=== PATIENT | male | born 1935 | race Caucasian/White ===

== ENCOUNTER → 2019-12-08 | Outpatient (CLI) | payer OTHER, BC ==
[~2019-12-08] MED LIST: ADULT LOW DOSE81 MG PO; CALCIUM + D3 E1 EACH; FLORINEF ACETA0.1 MG PO; HUMALOG100 UNIT/1; MESTINON60 MG PO; MIDODRINE HCL 55 M1 PO; MULTI-VITAMIN1 EAC5 PO; OMEGA-3100 MG PO; SYNTHROID100 MCG PO; VYTORIN 10-401 EACH PO
== END ==
LOC: HYPER 11:25
DX: E10.622 Type 1 diabetes mellitus with other skin ulcer (principal); L89.154 Pressure ulcer of sacral region, stage 4; L98.491 Non-pressure chronic ulcer of skin of other sites limited to breakdown of skin; E10.22 Type 1 diabetes mellitus with diabetic chronic kidney disease; I13.0 Hypertensive heart and chronic kidney disease with heart failure and stage 1 through stage 4 chronic kidney disease, or unspecified chronic kidney disease; N18.3 Chronic kidney disease, stage 3 (moderate); I50.9 Heart failure, unspecified; E10.42 Type 1 diabetes mellitus with diabetic polyneuropathy; E10.39 Type 1 diabetes mellitus with other diabetic ophthalmic complication; H40.9 Unspecified glaucoma; E10.51 Type 1 diabetes mellitus with diabetic peripheral angiopathy without gangrene; E44.0 Moderate protein-calorie malnutrition; E03.9 Hypothyroidism, unspecified; E78.5 Hyperlipidemia, unspecified; I25.10 Atherosclerotic heart disease of native coronary artery without angina pectoris; I48.0 Paroxysmal atrial fibrillation; I25.2 Old myocardial infarction; I89.0 Lymphedema, not elsewhere classified; M19.90 Unspecified osteoarthritis, unspecified site; M81.0 Age-related osteoporosis without current pathological fracture; Z87.891 Personal history of nicotine dependence; Z95.1 Presence of aortocoronary bypass graft; Z85.46 Personal history of malignant neoplasm of prostate; Z86.73 Personal history of transient ischemic attack (TIA), and cerebral infarction without residual deficits; Z95.828 Presence of other vascular implants and grafts; Z79.4 Long term (current) use of insulin; Z79.01 Long term (current) use of anticoagulants; Z95.818 Presence of other cardiac implants and grafts; Z98.49 Cataract extraction status, unspecified eye

== ENCOUNTER → 2019-12-22 | Outpatient (CLI) | payer OTHER, BC | LOC: HYPER 10:33 | DX: E10.622 Type 1 diabetes mellitus with other skin ulcer (principal); L89.154 Pressure ulcer of sacral region, stage 4; L98.496 Non-pressure chronic ulcer of skin of other sites with bone involvement without evidence of necrosis; E10.22 Type 1 diabetes mellitus with diabetic chronic kidney disease; I13.0 Hypertensive heart and chronic kidney disease with heart failure and stage 1 through stage 4 chronic kidney disease, or unspecified chronic kidney disease; N18.3 Chronic kidney disease, stage 3 (moderate); I50.9 Heart failure, unspecified; E10.42 Type 1 diabetes mellitus with diabetic polyneuropathy; E10.51 Type 1 diabetes mellitus with diabetic peripheral angiopathy without gangrene; E10.39 Type 1 diabetes mellitus with other diabetic ophthalmic complication; H40.9 Unspecified glaucoma; E46 Unspecified protein-calorie malnutrition; E03.9 Hypothyroidism, unspecified; E78.5 Hyperlipidemia, unspecified; E44.0 Moderate protein-calorie malnutrition; R54 Age-related physical debility; I48.0 Paroxysmal atrial fibrillation; I25.10 Atherosclerotic heart disease of native coronary artery without angina pectoris; I25.2 Old myocardial infarction; I89.0 Lymphedema, not elsewhere classified; M19.90 Unspecified osteoarthritis, unspecified site; M81.0 Age-related osteoporosis without current pathological fracture; Z86.73 Personal history of transient ischemic attack (TIA), and cerebral infarction without residual deficits; Z85.46 Personal history of malignant neoplasm of prostate; Z79.4 Long term (current) use of insulin; Z79.01 Long term (current) use of anticoagulants; Z87.891 Personal history of nicotine dependence; Z95.1 Presence of aortocoronary bypass graft; Z98.41 Cataract extraction status, right eye; Z98.42 Cataract extraction status, left eye; Z79.82 Long term (current) use of aspirin ==

== ENCOUNTER → 2020-01-04 | Outpatient (CLI) | payer OTHER, BC | LOC: HYPER 10:46 | PROVIDERS: ATTEND Emergency Medicine | DX: E10.622 Type 1 diabetes mellitus with other skin ulcer (principal); L89.154 Pressure ulcer of sacral region, stage 4; L98.496 Non-pressure chronic ulcer of skin of other sites with bone involvement without evidence of necrosis; E10.39 Type 1 diabetes mellitus with other diabetic ophthalmic complication; H40.9 Unspecified glaucoma; E10.22 Type 1 diabetes mellitus with diabetic chronic kidney disease; I13.0 Hypertensive heart and chronic kidney disease with heart failure and stage 1 through stage 4 chronic kidney disease, or unspecified chronic kidney disease; N18.3 Chronic kidney disease, stage 3 (moderate); I50.9 Heart failure, unspecified; E10.40 Type 1 diabetes mellitus with diabetic neuropathy, unspecified; E10.42 Type 1 diabetes mellitus with diabetic polyneuropathy; E10.51 Type 1 diabetes mellitus with diabetic peripheral angiopathy without gangrene; E44.0 Moderate protein-calorie malnutrition; E78.5 Hyperlipidemia, unspecified; E03.9 Hypothyroidism, unspecified; R54 Age-related physical debility; I89.0 Lymphedema, not elsewhere classified; I48.0 Paroxysmal atrial fibrillation; I25.10 Atherosclerotic heart disease of native coronary artery without angina pectoris; I25.2 Old myocardial infarction; M19.90 Unspecified osteoarthritis, unspecified site; M81.0 Age-related osteoporosis without current pathological fracture; Z86.73 Personal history of transient ischemic attack (TIA), and cerebral infarction without residual deficits; Z87.891 Personal history of nicotine dependence; Z95.818 Presence of other cardiac implants and grafts; Z79.4 Long term (current) use of insulin; Z79.01 Long term (current) use of anticoagulants; Z95.1 Presence of aortocoronary bypass graft; Z85.46 Personal history of malignant neoplasm of prostate; Z98.41 Cataract extraction status, right eye; Z98.42 Cataract extraction status, left eye ==

== ENCOUNTER → 2020-01-18 | Outpatient (CLI) | payer OTHER, BC | LOC: HYPER 07:17 | PROVIDERS: ATTEND Emergency Medicine | DX: E10.622 Type 1 diabetes mellitus with other skin ulcer (principal); L89.154 Pressure ulcer of sacral region, stage 4; L98.496 Non-pressure chronic ulcer of skin of other sites with bone involvement without evidence of necrosis; E10.42 Type 1 diabetes mellitus with diabetic polyneuropathy; E10.51 Type 1 diabetes mellitus with diabetic peripheral angiopathy without gangrene; I89.0 Lymphedema, not elsewhere classified; E10.36 Type 1 diabetes mellitus with diabetic cataract; E10.22 Type 1 diabetes mellitus with diabetic chronic kidney disease; I13.0 Hypertensive heart and chronic kidney disease with heart failure and stage 1 through stage 4 chronic kidney disease, or unspecified chronic kidney disease; I50.9 Heart failure, unspecified; N18.3 Chronic kidney disease, stage 3 (moderate); R54 Age-related physical debility; E44.0 Moderate protein-calorie malnutrition; E03.9 Hypothyroidism, unspecified; M19.90 Unspecified osteoarthritis, unspecified site; E10.39 Type 1 diabetes mellitus with other diabetic ophthalmic complication; H42 Glaucoma in diseases classified elsewhere; E78.5 Hyperlipidemia, unspecified; I48.91 Unspecified atrial fibrillation; I25.2 Old myocardial infarction; M81.0 Age-related osteoporosis without current pathological fracture; Z95.1 Presence of aortocoronary bypass graft; Z85.46 Personal history of malignant neoplasm of prostate; Z86.73 Personal history of transient ischemic attack (TIA), and cerebral infarction without residual deficits; Z68.1 Body mass index [BMI] 19.9 or less, adult; Z79.01 Long term (current) use of anticoagulants; Z79.82 Long term (current) use of aspirin; Z98.41 Cataract extraction status, right eye; Z98.42 Cataract extraction status, left eye; Z87.891 Personal history of nicotine dependence ==

== ENCOUNTER → 2020-01-25 | Outpatient (CLI) | payer OTHER, BC | LOC: HYPER 08:51 | PROVIDERS: ATTEND Emergency Medicine Emergency Medical Services | DX: E10.622 Type 1 diabetes mellitus with other skin ulcer (principal); L89.154 Pressure ulcer of sacral region, stage 4; L98.496 Non-pressure chronic ulcer of skin of other sites with bone involvement without evidence of necrosis; E10.22 Type 1 diabetes mellitus with diabetic chronic kidney disease; I13.0 Hypertensive heart and chronic kidney disease with heart failure and stage 1 through stage 4 chronic kidney disease, or unspecified chronic kidney disease; N18.3 Chronic kidney disease, stage 3 (moderate); I50.9 Heart failure, unspecified; E10.36 Type 1 diabetes mellitus with diabetic cataract; E10.39 Type 1 diabetes mellitus with other diabetic ophthalmic complication; H40.9 Unspecified glaucoma; E10.42 Type 1 diabetes mellitus with diabetic polyneuropathy; E10.51 Type 1 diabetes mellitus with diabetic peripheral angiopathy without gangrene; E44.0 Moderate protein-calorie malnutrition; E78.5 Hyperlipidemia, unspecified; E03.9 Hypothyroidism, unspecified; R54 Age-related physical debility; I89.0 Lymphedema, not elsewhere classified; I25.10 Atherosclerotic heart disease of native coronary artery without angina pectoris; I48.0 Paroxysmal atrial fibrillation; I25.2 Old myocardial infarction; M19.90 Unspecified osteoarthritis, unspecified site; M81.0 Age-related osteoporosis without current pathological fracture; Z85.46 Personal history of malignant neoplasm of prostate; Z79.4 Long term (current) use of insulin; Z79.01 Long term (current) use of anticoagulants; Z87.891 Personal history of nicotine dependence; Z95.818 Presence of other cardiac implants and grafts; Z95.1 Presence of aortocoronary bypass graft; Z98.42 Cataract extraction status, left eye; Z86.73 Personal history of transient ischemic attack (TIA), and cerebral infarction without residual deficits; Z95.828 Presence of other vascular implants and grafts ==

== ENCOUNTER → 2020-02-08 | Outpatient (CLI) | payer OTHER, BC | LOC: HYPER 10:39 | PROVIDERS: ATTEND Emergency Medicine | DX: E10.622 Type 1 diabetes mellitus with other skin ulcer (principal); L89.154 Pressure ulcer of sacral region, stage 4; L98.496 Non-pressure chronic ulcer of skin of other sites with bone involvement without evidence of necrosis; E10.22 Type 1 diabetes mellitus with diabetic chronic kidney disease; I13.0 Hypertensive heart and chronic kidney disease with heart failure and stage 1 through stage 4 chronic kidney disease, or unspecified chronic kidney disease; N18.3 Chronic kidney disease, stage 3 (moderate); I50.9 Heart failure, unspecified; E10.36 Type 1 diabetes mellitus with diabetic cataract; E10.39 Type 1 diabetes mellitus with other diabetic ophthalmic complication; H42 Glaucoma in diseases classified elsewhere; E10.42 Type 1 diabetes mellitus with diabetic polyneuropathy; E10.51 Type 1 diabetes mellitus with diabetic peripheral angiopathy without gangrene; E44.0 Moderate protein-calorie malnutrition; E78.5 Hyperlipidemia, unspecified; E03.9 Hypothyroidism, unspecified; R54 Age-related physical debility; I89.0 Lymphedema, not elsewhere classified; I25.10 Atherosclerotic heart disease of native coronary artery without angina pectoris; I25.2 Old myocardial infarction; M19.90 Unspecified osteoarthritis, unspecified site; M81.0 Age-related osteoporosis without current pathological fracture; Z85.46 Personal history of malignant neoplasm of prostate; Z79.4 Long term (current) use of insulin; Z79.01 Long term (current) use of anticoagulants; Z87.891 Personal history of nicotine dependence; Z85.818 Personal history of malignant neoplasm of other sites of lip, oral cavity, and pharynx; Z95.1 Presence of aortocoronary bypass graft; Z98.42 Cataract extraction status, left eye; Z86.73 Personal history of transient ischemic attack (TIA), and cerebral infarction without residual deficits; Z95.828 Presence of other vascular implants and grafts ==

== ENCOUNTER → 2020-02-22 | Outpatient (CLI) | payer OTHER, BC | LOC: RAD 10:32 → HYPER 10:32 | PROVIDERS: ATTEND Emergency Medicine | DX: E10.622 Type 1 diabetes mellitus with other skin ulcer (principal); L89.154 Pressure ulcer of sacral region, stage 4; L98.496 Non-pressure chronic ulcer of skin of other sites with bone involvement without evidence of necrosis; E10.22 Type 1 diabetes mellitus with diabetic chronic kidney disease; I13.0 Hypertensive heart and chronic kidney disease with heart failure and stage 1 through stage 4 chronic kidney disease, or unspecified chronic kidney disease; I50.9 Heart failure, unspecified; N18.3 Chronic kidney disease, stage 3 (moderate); E10.42 Type 1 diabetes mellitus with diabetic polyneuropathy; E10.51 Type 1 diabetes mellitus with diabetic peripheral angiopathy without gangrene; E10.39 Type 1 diabetes mellitus with other diabetic ophthalmic complication; H40.9 Unspecified glaucoma; E44.0 Moderate protein-calorie malnutrition; E03.9 Hypothyroidism, unspecified; E78.5 Hyperlipidemia, unspecified; R54 Age-related physical debility; I89.0 Lymphedema, not elsewhere classified; I48.0 Paroxysmal atrial fibrillation; I25.10 Atherosclerotic heart disease of native coronary artery without angina pectoris; I25.2 Old myocardial infarction; M19.90 Unspecified osteoarthritis, unspecified site; M81.0 Age-related osteoporosis without current pathological fracture; Z86.73 Personal history of transient ischemic attack (TIA), and cerebral infarction without residual deficits; Z85.46 Personal history of malignant neoplasm of prostate; Z87.891 Personal history of nicotine dependence; Z95.818 Presence of other cardiac implants and grafts; Z95.1 Presence of aortocoronary bypass graft; Z98.41 Cataract extraction status, right eye; Z98.42 Cataract extraction status, left eye; Z79.4 Long term (current) use of insulin; Z79.01 Long term (current) use of anticoagulants ==

== ENCOUNTER → 2020-02-27 | Outpatient (CLI) | payer OTHER, BC | LOC: HYPER 13:30 | PROVIDERS: ATTEND Emergency Medicine | DX: E10.622 Type 1 diabetes mellitus with other skin ulcer (principal); L89.154 Pressure ulcer of sacral region, stage 4; E10.22 Type 1 diabetes mellitus with diabetic chronic kidney disease; N18.3 Chronic kidney disease, stage 3 (moderate); E10.40 Type 1 diabetes mellitus with diabetic neuropathy, unspecified; E44.0 Moderate protein-calorie malnutrition; I48.0 Paroxysmal atrial fibrillation; R54 Age-related physical debility; Z87.891 Personal history of nicotine dependence; Z95.818 Presence of other cardiac implants and grafts; Z79.4 Long term (current) use of insulin; Z79.01 Long term (current) use of anticoagulants; Z95.1 Presence of aortocoronary bypass graft; Z98.41 Cataract extraction status, right eye; Z98.42 Cataract extraction status, left eye ==

== ENCOUNTER → 2020-03-29 | Outpatient (CLI) | payer OTHER, BC | LOC: HYPER 10:40 | PROVIDERS: ATTEND Emergency Medicine | DX: T81.89XA Other complications of procedures, not elsewhere classified, initial encounter (principal); E10.622 Type 1 diabetes mellitus with other skin ulcer; L89.154 Pressure ulcer of sacral region, stage 4; L98.491 Non-pressure chronic ulcer of skin of other sites limited to breakdown of skin; L02.31 Cutaneous abscess of buttock; E10.39 Type 1 diabetes mellitus with other diabetic ophthalmic complication; H40.9 Unspecified glaucoma; E10.40 Type 1 diabetes mellitus with diabetic neuropathy, unspecified; E10.51 Type 1 diabetes mellitus with diabetic peripheral angiopathy without gangrene; E10.22 Type 1 diabetes mellitus with diabetic chronic kidney disease; I13.0 Hypertensive heart and chronic kidney disease with heart failure and stage 1 through stage 4 chronic kidney disease, or unspecified chronic kidney disease; I50.9 Heart failure, unspecified; N18.3 Chronic kidney disease, stage 3 (moderate); E44.0 Moderate protein-calorie malnutrition; E03.9 Hypothyroidism, unspecified; E78.5 Hyperlipidemia, unspecified; I89.0 Lymphedema, not elsewhere classified; I48.0 Paroxysmal atrial fibrillation; R54 Age-related physical debility; I25.10 Atherosclerotic heart disease of native coronary artery without angina pectoris; I48.91 Unspecified atrial fibrillation; I25.2 Old myocardial infarction; M19.90 Unspecified osteoarthritis, unspecified site; M81.0 Age-related osteoporosis without current pathological fracture; Z86.73 Personal history of transient ischemic attack (TIA), and cerebral infarction without residual deficits; Z95.828 Presence of other vascular implants and grafts; Z79.4 Long term (current) use of insulin; Z79.01 Long term (current) use of anticoagulants; Z87.891 Personal history of nicotine dependence; Z95.818 Presence of other cardiac implants and grafts; Z95.1 Presence of aortocoronary bypass graft; Z85.46 Personal history of malignant neoplasm of prostate; Z98.41 Cataract extraction status, right eye; Z98.42 Cataract extraction status, left eye; Y92.238 Other place in hospital as the place of occurrence of the external cause; Y83.8 Other surgical procedures as the cause of abnormal reaction of the patient, or of later complication, without mention of misadventure at the time of the procedure ==

== ENCOUNTER → 2020-04-12 | Outpatient (CLI) | payer OTHER, BC | LOC: HYPER 10:22 | PROVIDERS: ATTEND Emergency Medicine | DX: T81.89XD Other complications of procedures, not elsewhere classified, subsequent encounter (principal); E10.622 Type 1 diabetes mellitus with other skin ulcer; L89.154 Pressure ulcer of sacral region, stage 4; L98.496 Non-pressure chronic ulcer of skin of other sites with bone involvement without evidence of necrosis; L02.31 Cutaneous abscess of buttock; E10.40 Type 1 diabetes mellitus with diabetic neuropathy, unspecified; E10.22 Type 1 diabetes mellitus with diabetic chronic kidney disease; I13.0 Hypertensive heart and chronic kidney disease with heart failure and stage 1 through stage 4 chronic kidney disease, or unspecified chronic kidney disease; I50.9 Heart failure, unspecified; N18.3 Chronic kidney disease, stage 3 (moderate); E10.51 Type 1 diabetes mellitus with diabetic peripheral angiopathy without gangrene; E10.39 Type 1 diabetes mellitus with other diabetic ophthalmic complication; H40.9 Unspecified glaucoma; E03.9 Hypothyroidism, unspecified; E44.0 Moderate protein-calorie malnutrition; E78.5 Hyperlipidemia, unspecified; R54 Age-related physical debility; I48.0 Paroxysmal atrial fibrillation; I89.0 Lymphedema, not elsewhere classified; I25.10 Atherosclerotic heart disease of native coronary artery without angina pectoris; I25.2 Old myocardial infarction; M19.90 Unspecified osteoarthritis, unspecified site; M81.0 Age-related osteoporosis without current pathological fracture; Z79.4 Long term (current) use of insulin; Z79.01 Long term (current) use of anticoagulants; Z85.46 Personal history of malignant neoplasm of prostate; Z87.891 Personal history of nicotine dependence; Z95.818 Presence of other cardiac implants and grafts; Z95.1 Presence of aortocoronary bypass graft; Z98.41 Cataract extraction status, right eye; Z98.42 Cataract extraction status, left eye; Z86.73 Personal history of transient ischemic attack (TIA), and cerebral infarction without residual deficits; Z95.828 Presence of other vascular implants and grafts; Y83.8 Other surgical procedures as the cause of abnormal reaction of the patient, or of later complication, without mention of misadventure at the time of the procedure ==

== ENCOUNTER → 2020-05-01 | Outpatient (CLI) | payer OTHER, BC | LOC: HYPER 09:42 | PROVIDERS: ATTEND Emergency Medicine | DX: T81.89XD Other complications of procedures, not elsewhere classified, subsequent encounter (principal); E10.622 Type 1 diabetes mellitus with other skin ulcer; L89.154 Pressure ulcer of sacral region, stage 4; L98.496 Non-pressure chronic ulcer of skin of other sites with bone involvement without evidence of necrosis; L02.31 Cutaneous abscess of buttock; E10.42 Type 1 diabetes mellitus with diabetic polyneuropathy; E10.51 Type 1 diabetes mellitus with diabetic peripheral angiopathy without gangrene; I89.0 Lymphedema, not elsewhere classified; E10.22 Type 1 diabetes mellitus with diabetic chronic kidney disease; I13.0 Hypertensive heart and chronic kidney disease with heart failure and stage 1 through stage 4 chronic kidney disease, or unspecified chronic kidney disease; N18.30 Chronic kidney disease, stage 3 unspecified; E44.0 Moderate protein-calorie malnutrition; R54 Age-related physical debility; E03.9 Hypothyroidism, unspecified; M19.90 Unspecified osteoarthritis, unspecified site; E10.39 Type 1 diabetes mellitus with other diabetic ophthalmic complication; H42 Glaucoma in diseases classified elsewhere; I25.10 Atherosclerotic heart disease of native coronary artery without angina pectoris; E78.5 Hyperlipidemia, unspecified; I48.91 Unspecified atrial fibrillation; I25.2 Old myocardial infarction; M81.0 Age-related osteoporosis without current pathological fracture; Z86.73 Personal history of transient ischemic attack (TIA), and cerebral infarction without residual deficits; Z85.46 Personal history of malignant neoplasm of prostate; Z87.891 Personal history of nicotine dependence; Z79.01 Long term (current) use of anticoagulants; Z95.1 Presence of aortocoronary bypass graft; Z98.41 Cataract extraction status, right eye; Z98.42 Cataract extraction status, left eye; Y83.8 Other surgical procedures as the cause of abnormal reaction of the patient, or of later complication, without mention of misadventure at the time of the procedure ==

== ENCOUNTER → 2020-05-29 | Outpatient (CLI) | payer OTHER, BC | LOC: HYPER 13:08 | PROVIDERS: ATTEND Emergency Medicine | DX: T81.89XD Other complications of procedures, not elsewhere classified, subsequent encounter (principal); E10.622 Type 1 diabetes mellitus with other skin ulcer; L89.154 Pressure ulcer of sacral region, stage 4; L98.491 Non-pressure chronic ulcer of skin of other sites limited to breakdown of skin; E10.22 Type 1 diabetes mellitus with diabetic chronic kidney disease; I13.0 Hypertensive heart and chronic kidney disease with heart failure and stage 1 through stage 4 chronic kidney disease, or unspecified chronic kidney disease; I50.9 Heart failure, unspecified; N18.30 Chronic kidney disease, stage 3 unspecified; R54 Age-related physical debility; E44.0 Moderate protein-calorie malnutrition; E10.628 Type 1 diabetes mellitus with other skin complications; L02.31 Cutaneous abscess of buttock; E10.42 Type 1 diabetes mellitus with diabetic polyneuropathy; E10.51 Type 1 diabetes mellitus with diabetic peripheral angiopathy without gangrene; I89.0 Lymphedema, not elsewhere classified; L84 Corns and callosities; E03.9 Hypothyroidism, unspecified; M19.90 Unspecified osteoarthritis, unspecified site; E10.39 Type 1 diabetes mellitus with other diabetic ophthalmic complication; H42 Glaucoma in diseases classified elsewhere; I25.10 Atherosclerotic heart disease of native coronary artery without angina pectoris; E78.5 Hyperlipidemia, unspecified; I48.91 Unspecified atrial fibrillation; I25.2 Old myocardial infarction; M81.0 Age-related osteoporosis without current pathological fracture; Z85.46 Personal history of malignant neoplasm of prostate; Z86.73 Personal history of transient ischemic attack (TIA), and cerebral infarction without residual deficits; Z79.01 Long term (current) use of anticoagulants; Z68.1 Body mass index [BMI] 19.9 or less, adult; Z95.1 Presence of aortocoronary bypass graft; Z98.41 Cataract extraction status, right eye; Z98.42 Cataract extraction status, left eye; Z87.891 Personal history of nicotine dependence; Y83.8 Other surgical procedures as the cause of abnormal reaction of the patient, or of later complication, without mention of misadventure at the time of the procedure ==

== ENCOUNTER → 2020-06-14 | Outpatient (CLI) | payer OTHER, BC | LOC: HYPER 10:48 | PROVIDERS: ATTEND Emergency Medicine | DX: T81.89XD Other complications of procedures, not elsewhere classified, subsequent encounter (principal); E10.622 Type 1 diabetes mellitus with other skin ulcer; L89.154 Pressure ulcer of sacral region, stage 4; L98.492 Non-pressure chronic ulcer of skin of other sites with fat layer exposed; L84 Corns and callosities; L02.31 Cutaneous abscess of buttock; E10.22 Type 1 diabetes mellitus with diabetic chronic kidney disease; I13.0 Hypertensive heart and chronic kidney disease with heart failure and stage 1 through stage 4 chronic kidney disease, or unspecified chronic kidney disease; I50.9 Heart failure, unspecified; N18.30 Chronic kidney disease, stage 3 unspecified; E10.42 Type 1 diabetes mellitus with diabetic polyneuropathy; E10.51 Type 1 diabetes mellitus with diabetic peripheral angiopathy without gangrene; E10.39 Type 1 diabetes mellitus with other diabetic ophthalmic complication; H40.9 Unspecified glaucoma; E44.0 Moderate protein-calorie malnutrition; I89.0 Lymphedema, not elsewhere classified; E03.9 Hypothyroidism, unspecified; E78.5 Hyperlipidemia, unspecified; R54 Age-related physical debility; I25.10 Atherosclerotic heart disease of native coronary artery without angina pectoris; I48.91 Unspecified atrial fibrillation; I25.2 Old myocardial infarction; M19.90 Unspecified osteoarthritis, unspecified site; M81.0 Age-related osteoporosis without current pathological fracture; Z85.46 Personal history of malignant neoplasm of prostate; Z86.73 Personal history of transient ischemic attack (TIA), and cerebral infarction without residual deficits; Z79.01 Long term (current) use of anticoagulants; Z68.1 Body mass index [BMI] 19.9 or less, adult; Z95.1 Presence of aortocoronary bypass graft; Z98.41 Cataract extraction status, right eye; Z98.42 Cataract extraction status, left eye; Z87.891 Personal history of nicotine dependence; Y83.8 Other surgical procedures as the cause of abnormal reaction of the patient, or of later complication, without mention of misadventure at the time of the procedure ==

== ENCOUNTER → 2020-06-28 | Outpatient (CLI) | payer OTHER, BC | LOC: HYPER 13:14 | PROVIDERS: ATTEND Emergency Medicine | DX: T81.89XD Other complications of procedures, not elsewhere classified, subsequent encounter (principal); E10.622 Type 1 diabetes mellitus with other skin ulcer; L89.154 Pressure ulcer of sacral region, stage 4; L98.492 Non-pressure chronic ulcer of skin of other sites with fat layer exposed; L84 Corns and callosities; L02.31 Cutaneous abscess of buttock; E10.22 Type 1 diabetes mellitus with diabetic chronic kidney disease; I13.0 Hypertensive heart and chronic kidney disease with heart failure and stage 1 through stage 4 chronic kidney disease, or unspecified chronic kidney disease; I50.9 Heart failure, unspecified; N18.30 Chronic kidney disease, stage 3 unspecified; E10.42 Type 1 diabetes mellitus with diabetic polyneuropathy; E10.51 Type 1 diabetes mellitus with diabetic peripheral angiopathy without gangrene; E10.39 Type 1 diabetes mellitus with other diabetic ophthalmic complication; H40.9 Unspecified glaucoma; E44.0 Moderate protein-calorie malnutrition; I89.0 Lymphedema, not elsewhere classified; E03.9 Hypothyroidism, unspecified; E78.5 Hyperlipidemia, unspecified; R54 Age-related physical debility; I25.10 Atherosclerotic heart disease of native coronary artery without angina pectoris; I48.91 Unspecified atrial fibrillation; I25.2 Old myocardial infarction; M19.90 Unspecified osteoarthritis, unspecified site; M81.0 Age-related osteoporosis without current pathological fracture; Z85.46 Personal history of malignant neoplasm of prostate; Z86.73 Personal history of transient ischemic attack (TIA), and cerebral infarction without residual deficits; Z79.01 Long term (current) use of anticoagulants; Z79.4 Long term (current) use of insulin; Z68.1 Body mass index [BMI] 19.9 or less, adult; Z95.1 Presence of aortocoronary bypass graft; Z98.41 Cataract extraction status, right eye; Z98.42 Cataract extraction status, left eye; Z87.891 Personal history of nicotine dependence; Y83.8 Other surgical procedures as the cause of abnormal reaction of the patient, or of later complication, without mention of misadventure at the time of the procedure ==

== ENCOUNTER → 2020-07-31 | Outpatient (CLI) | payer OTHER, BC | LOC: HYPER 12:05 | PROVIDERS: ATTEND Emergency Medicine | DX: T81.89XD Other complications of procedures, not elsewhere classified, subsequent encounter (principal); E10.622 Type 1 diabetes mellitus with other skin ulcer; L89.154 Pressure ulcer of sacral region, stage 4; L98.492 Non-pressure chronic ulcer of skin of other sites with fat layer exposed; L84 Corns and callosities; L02.31 Cutaneous abscess of buttock; E10.22 Type 1 diabetes mellitus with diabetic chronic kidney disease; I13.0 Hypertensive heart and chronic kidney disease with heart failure and stage 1 through stage 4 chronic kidney disease, or unspecified chronic kidney disease; I50.9 Heart failure, unspecified; N18.30 Chronic kidney disease, stage 3 unspecified; E10.42 Type 1 diabetes mellitus with diabetic polyneuropathy; E10.51 Type 1 diabetes mellitus with diabetic peripheral angiopathy without gangrene; E10.39 Type 1 diabetes mellitus with other diabetic ophthalmic complication; H42 Glaucoma in diseases classified elsewhere; E44.0 Moderate protein-calorie malnutrition; E03.9 Hypothyroidism, unspecified; I89.0 Lymphedema, not elsewhere classified; E78.5 Hyperlipidemia, unspecified; R54 Age-related physical debility; I25.10 Atherosclerotic heart disease of native coronary artery without angina pectoris; I48.91 Unspecified atrial fibrillation; I25.2 Old myocardial infarction; M19.90 Unspecified osteoarthritis, unspecified site; M81.0 Age-related osteoporosis without current pathological fracture; Z85.46 Personal history of malignant neoplasm of prostate; Z86.73 Personal history of transient ischemic attack (TIA), and cerebral infarction without residual deficits; Z79.01 Long term (current) use of anticoagulants; Z79.4 Long term (current) use of insulin; Z68.1 Body mass index [BMI] 19.9 or less, adult; Z95.1 Presence of aortocoronary bypass graft; Z98.41 Cataract extraction status, right eye; Z98.42 Cataract extraction status, left eye; Z87.891 Personal history of nicotine dependence; Y83.8 Other surgical procedures as the cause of abnormal reaction of the patient, or of later complication, without mention of misadventure at the time of the procedure ==

== ENCOUNTER → 2020-08-21 | Outpatient (CLI) | payer OTHER, BC | LOC: HYPER 10:55 | PROVIDERS: ATTEND Emergency Medicine | DX: T81.89XD Other complications of procedures, not elsewhere classified, subsequent encounter (principal); E10.622 Type 1 diabetes mellitus with other skin ulcer; L89.154 Pressure ulcer of sacral region, stage 4; L98.492 Non-pressure chronic ulcer of skin of other sites with fat layer exposed; L84 Corns and callosities; L02.31 Cutaneous abscess of buttock; E10.22 Type 1 diabetes mellitus with diabetic chronic kidney disease; I13.0 Hypertensive heart and chronic kidney disease with heart failure and stage 1 through stage 4 chronic kidney disease, or unspecified chronic kidney disease; I50.9 Heart failure, unspecified; N18.30 Chronic kidney disease, stage 3 unspecified; E10.42 Type 1 diabetes mellitus with diabetic polyneuropathy; E10.51 Type 1 diabetes mellitus with diabetic peripheral angiopathy without gangrene; E10.39 Type 1 diabetes mellitus with other diabetic ophthalmic complication; H42 Glaucoma in diseases classified elsewhere; E44.0 Moderate protein-calorie malnutrition; E03.9 Hypothyroidism, unspecified; I89.0 Lymphedema, not elsewhere classified; E78.5 Hyperlipidemia, unspecified; R54 Age-related physical debility; I25.10 Atherosclerotic heart disease of native coronary artery without angina pectoris; I48.91 Unspecified atrial fibrillation; I25.2 Old myocardial infarction; M19.90 Unspecified osteoarthritis, unspecified site; M81.0 Age-related osteoporosis without current pathological fracture; Z85.46 Personal history of malignant neoplasm of prostate; Z86.73 Personal history of transient ischemic attack (TIA), and cerebral infarction without residual deficits; Z79.01 Long term (current) use of anticoagulants; Z79.4 Long term (current) use of insulin; Z68.1 Body mass index [BMI] 19.9 or less, adult; Z95.1 Presence of aortocoronary bypass graft; Z98.41 Cataract extraction status, right eye; Z98.42 Cataract extraction status, left eye; Z95.818 Presence of other cardiac implants and grafts; Z87.891 Personal history of nicotine dependence; Y83.8 Other surgical procedures as the cause of abnormal reaction of the patient, or of later complication, without mention of misadventure at the time of the procedure ==

== ENCOUNTER → 2020-09-04 | Outpatient (CLI) | payer OTHER, BC | LOC: HYPER 14:32 | PROVIDERS: ATTEND Emergency Medicine | DX: T81.89XD Other complications of procedures, not elsewhere classified, subsequent encounter (principal); E10.622 Type 1 diabetes mellitus with other skin ulcer; L89.154 Pressure ulcer of sacral region, stage 4; L98.492 Non-pressure chronic ulcer of skin of other sites with fat layer exposed; L84 Corns and callosities; L02.31 Cutaneous abscess of buttock; E10.22 Type 1 diabetes mellitus with diabetic chronic kidney disease; I13.0 Hypertensive heart and chronic kidney disease with heart failure and stage 1 through stage 4 chronic kidney disease, or unspecified chronic kidney disease; I50.9 Heart failure, unspecified; N18.30 Chronic kidney disease, stage 3 unspecified; E10.42 Type 1 diabetes mellitus with diabetic polyneuropathy; E10.51 Type 1 diabetes mellitus with diabetic peripheral angiopathy without gangrene; E10.39 Type 1 diabetes mellitus with other diabetic ophthalmic complication; H42 Glaucoma in diseases classified elsewhere; E44.0 Moderate protein-calorie malnutrition; E03.9 Hypothyroidism, unspecified; I89.0 Lymphedema, not elsewhere classified; E78.5 Hyperlipidemia, unspecified; R54 Age-related physical debility; I25.10 Atherosclerotic heart disease of native coronary artery without angina pectoris; I48.91 Unspecified atrial fibrillation; I25.2 Old myocardial infarction; M19.90 Unspecified osteoarthritis, unspecified site; M81.0 Age-related osteoporosis without current pathological fracture; Z85.46 Personal history of malignant neoplasm of prostate; Z86.73 Personal history of transient ischemic attack (TIA), and cerebral infarction without residual deficits; Z79.01 Long term (current) use of anticoagulants; Z79.4 Long term (current) use of insulin; Z68.1 Body mass index [BMI] 19.9 or less, adult; Z95.1 Presence of aortocoronary bypass graft; Z98.41 Cataract extraction status, right eye; Z98.42 Cataract extraction status, left eye; Z95.818 Presence of other cardiac implants and grafts; Z87.891 Personal history of nicotine dependence; Y83.8 Other surgical procedures as the cause of abnormal reaction of the patient, or of later complication, without mention of misadventure at the time of the procedure ==

== ENCOUNTER → 2020-09-19 | Outpatient (CLI) | payer OTHER, BC | LOC: HYPER 13:10 | PROVIDERS: ATTEND Emergency Medicine | DX: T81.89XD Other complications of procedures, not elsewhere classified, subsequent encounter (principal); E10.622 Type 1 diabetes mellitus with other skin ulcer; L89.154 Pressure ulcer of sacral region, stage 4; L98.492 Non-pressure chronic ulcer of skin of other sites with fat layer exposed; L84 Corns and callosities; L02.31 Cutaneous abscess of buttock; E10.22 Type 1 diabetes mellitus with diabetic chronic kidney disease; I13.0 Hypertensive heart and chronic kidney disease with heart failure and stage 1 through stage 4 chronic kidney disease, or unspecified chronic kidney disease; I50.9 Heart failure, unspecified; N18.30 Chronic kidney disease, stage 3 unspecified; E10.42 Type 1 diabetes mellitus with diabetic polyneuropathy; E10.51 Type 1 diabetes mellitus with diabetic peripheral angiopathy without gangrene; E10.39 Type 1 diabetes mellitus with other diabetic ophthalmic complication; H42 Glaucoma in diseases classified elsewhere; E44.0 Moderate protein-calorie malnutrition; E03.9 Hypothyroidism, unspecified; I89.0 Lymphedema, not elsewhere classified; E78.5 Hyperlipidemia, unspecified; R54 Age-related physical debility; I25.10 Atherosclerotic heart disease of native coronary artery without angina pectoris; I48.91 Unspecified atrial fibrillation; I25.2 Old myocardial infarction; M19.90 Unspecified osteoarthritis, unspecified site; M81.0 Age-related osteoporosis without current pathological fracture; Z85.46 Personal history of malignant neoplasm of prostate; Z86.73 Personal history of transient ischemic attack (TIA), and cerebral infarction without residual deficits; Z79.01 Long term (current) use of anticoagulants; Z79.4 Long term (current) use of insulin; Z68.1 Body mass index [BMI] 19.9 or less, adult; Z95.1 Presence of aortocoronary bypass graft; Z98.41 Cataract extraction status, right eye; Z98.42 Cataract extraction status, left eye; Z95.818 Presence of other cardiac implants and grafts; Z87.891 Personal history of nicotine dependence; Y83.8 Other surgical procedures as the cause of abnormal reaction of the patient, or of later complication, without mention of misadventure at the time of the procedure ==

== ENCOUNTER → 2020-10-04 | Outpatient (CLI) | payer OTHER, BC | LOC: HYPER 08:54 | PROVIDERS: ATTEND Emergency Medicine | DX: T81.89XD Other complications of procedures, not elsewhere classified, subsequent encounter (principal); E10.622 Type 1 diabetes mellitus with other skin ulcer; L89.154 Pressure ulcer of sacral region, stage 4; L98.491 Non-pressure chronic ulcer of skin of other sites limited to breakdown of skin; L02.31 Cutaneous abscess of buttock; E10.42 Type 1 diabetes mellitus with diabetic polyneuropathy; E10.51 Type 1 diabetes mellitus with diabetic peripheral angiopathy without gangrene; I89.0 Lymphedema, not elsewhere classified; L84 Corns and callosities; E10.22 Type 1 diabetes mellitus with diabetic chronic kidney disease; I13.0 Hypertensive heart and chronic kidney disease with heart failure and stage 1 through stage 4 chronic kidney disease, or unspecified chronic kidney disease; I50.9 Heart failure, unspecified; N18.30 Chronic kidney disease, stage 3 unspecified; R54 Age-related physical debility; E44.0 Moderate protein-calorie malnutrition; E03.9 Hypothyroidism, unspecified; M19.90 Unspecified osteoarthritis, unspecified site; E10.39 Type 1 diabetes mellitus with other diabetic ophthalmic complication; H42 Glaucoma in diseases classified elsewhere; I25.10 Atherosclerotic heart disease of native coronary artery without angina pectoris; M81.0 Age-related osteoporosis without current pathological fracture; E78.5 Hyperlipidemia, unspecified; Z68.1 Body mass index [BMI] 19.9 or less, adult; Z85.46 Personal history of malignant neoplasm of prostate; Z86.73 Personal history of transient ischemic attack (TIA), and cerebral infarction without residual deficits; Z79.01 Long term (current) use of anticoagulants; Z95.1 Presence of aortocoronary bypass graft; Z98.41 Cataract extraction status, right eye; Z98.42 Cataract extraction status, left eye; Y83.8 Other surgical procedures as the cause of abnormal reaction of the patient, or of later complication, without mention of misadventure at the time of the procedure ==

== ENCOUNTER → 2020-10-24 | Outpatient (CLI) | payer OTHER, BC | LOC: HYPER 13:04 | PROVIDERS: ATTEND Emergency Medicine | DX: T81.89XD Other complications of procedures, not elsewhere classified, subsequent encounter (principal); E10.622 Type 1 diabetes mellitus with other skin ulcer; L89.154 Pressure ulcer of sacral region, stage 4; L98.491 Non-pressure chronic ulcer of skin of other sites limited to breakdown of skin; L02.31 Cutaneous abscess of buttock; E10.42 Type 1 diabetes mellitus with diabetic polyneuropathy; E10.51 Type 1 diabetes mellitus with diabetic peripheral angiopathy without gangrene; L84 Corns and callosities; I89.0 Lymphedema, not elsewhere classified; E10.22 Type 1 diabetes mellitus with diabetic chronic kidney disease; I13.0 Hypertensive heart and chronic kidney disease with heart failure and stage 1 through stage 4 chronic kidney disease, or unspecified chronic kidney disease; I50.9 Heart failure, unspecified; N18.30 Chronic kidney disease, stage 3 unspecified; R54 Age-related physical debility; E44.0 Moderate protein-calorie malnutrition; E03.9 Hypothyroidism, unspecified; M19.90 Unspecified osteoarthritis, unspecified site; E10.39 Type 1 diabetes mellitus with other diabetic ophthalmic complication; H42 Glaucoma in diseases classified elsewhere; I25.10 Atherosclerotic heart disease of native coronary artery without angina pectoris; M81.0 Age-related osteoporosis without current pathological fracture; E78.5 Hyperlipidemia, unspecified; Z68.1 Body mass index [BMI] 19.9 or less, adult; Z85.46 Personal history of malignant neoplasm of prostate; Z86.73 Personal history of transient ischemic attack (TIA), and cerebral infarction without residual deficits; Z79.01 Long term (current) use of anticoagulants; Z95.1 Presence of aortocoronary bypass graft; Z98.41 Cataract extraction status, right eye; Z98.42 Cataract extraction status, left eye; Z95.818 Presence of other cardiac implants and grafts; Y83.8 Other surgical procedures as the cause of abnormal reaction of the patient, or of later complication, without mention of misadventure at the time of the procedure ==

== ENCOUNTER → 2020-11-15 | Outpatient (CLI) | payer OTHER, BC | LOC: HYPER 07:46 | PROVIDERS: ATTEND Emergency Medicine | DX: T81.89XD Other complications of procedures, not elsewhere classified, subsequent encounter (principal); E10.622 Type 1 diabetes mellitus with other skin ulcer; L89.154 Pressure ulcer of sacral region, stage 4; L98.491 Non-pressure chronic ulcer of skin of other sites limited to breakdown of skin; L02.31 Cutaneous abscess of buttock; L84 Corns and callosities; E10.51 Type 1 diabetes mellitus with diabetic peripheral angiopathy without gangrene; E10.42 Type 1 diabetes mellitus with diabetic polyneuropathy; I89.0 Lymphedema, not elsewhere classified; E10.22 Type 1 diabetes mellitus with diabetic chronic kidney disease; I13.0 Hypertensive heart and chronic kidney disease with heart failure and stage 1 through stage 4 chronic kidney disease, or unspecified chronic kidney disease; I50.9 Heart failure, unspecified; N18.30 Chronic kidney disease, stage 3 unspecified; R54 Age-related physical debility; E44.0 Moderate protein-calorie malnutrition; E03.9 Hypothyroidism, unspecified; M19.90 Unspecified osteoarthritis, unspecified site; E10.39 Type 1 diabetes mellitus with other diabetic ophthalmic complication; H42 Glaucoma in diseases classified elsewhere; I25.10 Atherosclerotic heart disease of native coronary artery without angina pectoris; E78.5 Hyperlipidemia, unspecified; I48.91 Unspecified atrial fibrillation; I25.2 Old myocardial infarction; M81.0 Age-related osteoporosis without current pathological fracture; Z68.1 Body mass index [BMI] 19.9 or less, adult; Z85.46 Personal history of malignant neoplasm of prostate; Z79.01 Long term (current) use of anticoagulants; Z86.73 Personal history of transient ischemic attack (TIA), and cerebral infarction without residual deficits; Z95.1 Presence of aortocoronary bypass graft; Z98.41 Cataract extraction status, right eye; Z98.42 Cataract extraction status, left eye; Z79.82 Long term (current) use of aspirin; Z79.899 Other long term (current) drug therapy; Y83.8 Other surgical procedures as the cause of abnormal reaction of the patient, or of later complication, without mention of misadventure at the time of the procedure ==